=== PATIENT | female | born 1960 | race Caucasian/White ===

== ENCOUNTER 2016-07-18 09:53 | Inpatient (IN) ==
--- NOTE | 2016-07-17 21:06 | Discharge Summary ---
<SmitarudyStephanie gore Deidre - Last Filed: 07/18/16 13:51> - Discharge Diagnosis (1) Arthritis of knee, right Priority: Primary Status: Acute (2) Hyperlipidemia Priority: Secondary Status: Chronic Qualifiers: Hyperlipidemia type: unspecified Qualified Code(s): E78.5 - Hyperlipidemia , unspecified (3) Asthma Status: Chronic Qualifiers: Asthma severity: unspecified severity Asthma complication type: uncomplicated Qualified Code(s): J45.909 - Unspecified asthma, uncomplicated (4) Hypertension Status: Chronic Qualifiers: Hypertension type: unspecified secondary hypertension Qualified Code(s): I15.9 - Secondary hypertension, unspecified; I15 - Secondary hypertension (5) Obstructive sleep apnea Status: Chronic - Discharge Medications Home Medications: Atorvastatin Calcium [Lipitor] 20 mg PO DAILY 07/18/15 [History] Lisinopril [Zestril] 20 mg PO DAILY 07/18/15 [History] Multivitamin [Multi-Day Vitamins] 1 tab PO DAILY 12/22/15 [History] Aspirin Enteric Coated [Aspirin EC] 325 mg PO DAILY #21 tablet.dr 07/17/16 [Rx] OxyCODONE Immed Rel [Roxicodone 5 MG] 5 - 10 mg PO Q6HR PRN #40 tablet 07/17/16 [Rx] Ibuprofen [Motrin] 200 mg PO Q8H PRN 07/18/16 [History] Montelukast [Singulair] 10 mg PO HS 07/18/16 [History] Rizatriptan Benzoate [Maxalt] 10 mg PO DAILY PRN 07/18/16 [History] Allergies/Adverse Reactions: Allergies prednisone Allergy (Verified 07/18/16 11:51) Hives Diclofenac Adverse Reaction (Verified 07/18/16 11:51) Nausea Primary care physician: Dandre Patton DO - Patient Status Disposition: Home, Self-Care Condition: Good - Discharge Instructions Follow Up With: Dandre Patton DO [Primary Care Provider] - - Hospital Course Hospital course: Ms. Martinez is a 55 year old female - Time Spent with Patient Total time spent providing and/or coordinating discharge services: <Lance Dickson - Last Filed: 07/19/16 06:42> Date of Encounter: 07/19/16 Time of Encounter: 06:42 - Discharge Diagnosis (1) Hypertension Priority: Secondary Status: Chronic Qualifiers: Hypertension type: unspecified secondary hypertension Qualified Code(s): I15.9 - Secondary hypertension, unspecified; I15 - Secondary hypertension (2) Hyperlipidemia Status: Chronic Qualifiers: Hyperlipidemia type: unspecified Qualified Code(s): E78.5 - Hyperlipidemia , unspecified (3) Asthma Priority: Secondary Status: Chronic Qualifiers: Asthma severity: unspecified severity Asthma complication type: uncomplicated Qualified Code(s): J45.909 - Unspecified asthma, uncomplicated (4) Obstructive sleep apnea Priority: Secondary Status: Chronic (5) Arthritis of knee, right Priority: Primary Status: Acute (6) Acute blood loss anemia Priority: Primary Status: Acute Primary care physician: Dandre Patton DO - Patient Status Functional capacity at discharge: uses cane/walker Overall status at discharge: patient is progressing back to baseline - Hospital Course Hospital course: Ms. Martinez is a 55 year old female The patient had an uneventful postoperative course. They received antibiotics and physical therapy and were discharged in stable condition. There will follow -up in the office in 2 weeks. Aspirin DVT prophylaxis - Time Spent with Patient Total time spent providing and/or coordinating discharge services:
--- NOTE | 2016-07-18 10:01 | History & Physical Report ---
Date of Encounter: 07/18/16 Time of Encounter: 10:00 24 Hour HP Update - Instructions Instructions: If the History and Physical is less than 30 days old and was completed prior to A.M. admission and or procedure and has NOT been updated on calendar day of procedure please complete this update prior to performing procedure. - Update Patient reports changes in Medical Condition: No Changes in assessment/condition: No Changes in Medication: No Preop tests/diagnostics Reviewed: Yes Surgery Remains Indicated: Yes Consent for Planned Operative Procedure(s) Verified: Yes - Pre-Operative Checklist Preoperative Checklist Indicated: No Prophylactic Antibiotic Ordered: Yes Is VTE Prophylaxis Indicated?: Yes
[2016-07-18] MEDS ORDERED: CeFAZolin Pre 2,000 MG/100 ML 2,000 MG/100 ML BAG IVPB ONE (10:13)
[2016-07-18] MEDS ORDERED: Albuterol 2.5 MG/3 ML NEBULIZER IH ONE (10:13)
[2016-07-18] MEDS: Ringers Solution, Lactated 1,000 ML IVC SCH ×3 (10:36→15:01)
[2016-07-18] MEDS ORDERED: Vancomycin 1,000 MG in D5% in Water 250 ML IVPB ONE (10:37)
--- NOTE | 2016-07-18 10:44 | Anesthesia Evaluation PreOp ---
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 History: Other (lumbar ddd, chronic back/leg pain, lumbar stenosis, deaf complete left/partial right) Other Medical History: Denies Any Significant HX Anesthesia History: No Prior Anesthetic Complications, Past Anesthesia (ankle, hysterect, knee arth, tka, l foot) Alcohol Use: none Drug use: none Medications and Allergies Atorvastatin Calcium [Lipitor] 20 mg PO DAILY 07/18/15 [History] Lisinopril [Zestril] 20 mg PO DAILY 07/18/15 [History] Lovastatin [Altoprev] 40 mg PO DAILY 12/22/15 [History] Multivitamin [Multi-Day Vitamins] 1 tab PO DAILY 12/22/15 [History] Aspirin Enteric Coated [Aspirin EC] 325 mg PO DAILY #21 tablet. 07/17/16 [Rx] OxyCODONE Immed Rel [Roxicodone 5 MG] 5 - 10 mg PO Q6HR PRN #40 tablet 07/17/16 [Rx] Allergies prednisone Allergy (Verified 05/12/16 17:59) Hives - Meds/Allergy Pre-op Review Medications Reviewed: Yes Allergies Reviewed: Yes Beta Blockers on Current Med List: No Anesthesia Results - Labs Laboratory Tests 07/01/16 07/01/16 07/01/16 14:33 14:33 14:33 Hgb 12.4 Hct 37.9 Plt Count 243 PT 10.8 INR 1.0 APTT 31.0 Sodium 140 Potassium 4.2 Creatinine 0.73 - Imaging EKG: report reviewed (sr) Anesthesia Exam O2 Sat Height 1.6 m Height 1.6 m Height 1.6 m Weight 87.543 kg Weight 87.543 kg Weight 87.543 kg O2 Sat by Pulse Oximetry 99 O2 Sat by Pulse Oximetry 99 Vital Signs Temp Pulse Resp BP Pulse Ox 99.1 F 70 18 102/67 99 07/18/16 10:38 07/18/16 10:38 07/18/16 10:38 07/18/16 10:38 07/18/16 10:38 Height: 1.6 Weight: 87 NPO (# of Hours): >8 - HEENT Pupil (Motor): Pupils equal, EOMI Mallampati: I Teeth: Edentulous, Poor dentition Oral Opening: Greater than 3 - WOOD PATTERN[employer] LOC: Oriented [employer]OD [employer]TERN[employer] Motor: Normal RUE, Normal LUE, Normal RLE, Normal LLE, Normal Face [employer] Sensory: Normal: RUE, LUE, RLE, LLE, Face - Cardiac Rhythm: Regular Murmur: None - Pulmonary Breath Sounds: bilateral Clear Respiratory Effort: Symmetrical Anesthesia Assess/Plan ASA Score: 2 Modified Osteen Scale for Level of Consciousness: Cooperative, oriented, and tranquil Anesthetic Plan: General, Regional Monitoring Plan: Standard Monitors Recovery Plan: PACU
[2016-07-18] MEDS ORDERED: *HR* Magnesium Sulfate 2 GM/50 ML PIGGYBACK IVPB ONE (10:51)
[2016-07-18] MEDS ORDERED: CloNIDine Patch 0.1 MG PATCH (WEEKLY) TD SCH (11:00)
[2016-07-18] MEDS ORDERED: Magnesium Sulfate 2 GM/100 ML PIGGYBACK IVPB SCH (11:15)
[2016-07-18] MEDS ORDERED: *HR* Labetalol 100 MG/20 ML MDV IVP PRN (11:33)
[2016-07-18] MEDS ORDERED: Ondansetron 4 MG/2 ML VIAL IVP ONE (11:33)
[2016-07-18] MEDS ORDERED: *HR* HYDROmorphone (PF) 1 MG/ML SYRINGE IVP PRN (11:33)
[2016-07-18] MEDS ORDERED: *HR* FentaNYL (PF) 100 MCG/2 ML VIAL ONE ×3 (11:37→13:02)
[2016-07-18] MEDS ORDERED: *HR* Propofol 200 MG/20 ML VIAL IVP ONE (11:37)
[2016-07-18] MEDS ORDERED: *HR* Midazolam HCl 2 MG/2 ML VIAL ONE (11:37)
[2016-07-18] MEDS ORDERED: Lidocaine -MPF 2% 2 ML VIAL ONE (11:38)
[2016-07-18] MEDS ORDERED: Tetracaine/PF 20 MG/2 ML AMPUL SPINA ONE (12:14)
--- NOTE | 2016-07-18 12:35 | Anesthesia Procedures ---
Date of Encounter: 07/18/16 Time of Encounter: 12: Procedures: Anesthesia - Nerve Block Procedure Date: 07/18/16 Time: 12: Surgical Procedure: right total knee Checklist: Correct Patient Identifier, Correct procedure, History checked Correct side: Right Monitor Applied: EKG Sedation: Versed (mg): 2 Sedation: Fentanyl (mcg): 100 Indication: Post Op Analgesia Block Type: Femoral Catheter placed: No Sterile Technique: Yes Ultrasound used: Yes Anatomy identified: Yes Visual spread of Local: Yes Blood on Needle Aspiration: No Smooth Injection of Local: Yes Pain with Injection of Local: No Prep: Chlorhexadine Needle: 22 x 50 mm Stimuplex Local: Other (40ml .5% bup, 2ml tetracaine, 4ml 2% lido ) Volume (cc): 50 Number of Attempts: 1 Complications: None/effective block Vitals: vss, block per request of sue
--- NOTE | 2016-07-18 13:23 | Orthopedic Operative Note ---
Date of procedure: 07/18/16 Pre-op diagnosis: Right knee arthritis Post-op diagnosis: same Procedure: Procedure: Right Total knee replacement Estimated blood loss: 200 cc Hardware: Arthrex Femur: 4 Tibia: 3 PS insert: 14 Patella: 34 Exam Under anesthesia: Full extension full flexion and instability Procedural Notes: Patient noted to have grade 4 arthritic changes medial compartment grade 3 arthritic changes patellofemoral joint. Operative procedure: The patient was brought to the operating room and placed on the operating room table. After general anesthesia was administered the operative knee was examined. Findings were noted in the exam under anesthesia. The operative extremity was prepped and draped in sterile surgical fashion. The patient received IV antibiotics prior to skin incision. A standard midline incision was made centered over the patella. The incision was made through the skin and subcutaneous tissue. A medial parapatellar tendon approach was performed. Care was taken to preserve tissue along the medial aspect of the patella. And to protect the patella tendon. The deep MCL was released off the medial tibia. The infra patella fat pad was excised. Knee was brought into flexion. Patient noted to have grade 4 arthritic changes medial compartment grade 3 arthritic changes patellofemoral joint. The entry hole was made for the intramedullary femoral guide. The guide was seated in 6 degrees of valgus. Anterior cut was made followed by the distal cut. The ACL the PCL the medial and the lateral menisci were excised. The tibia was subluxed forward. The entry hole was made for the intramedullary tibial guide. Guide was seated to resect 2 mm off the more abnormal side. The knee was brought into flexion the distal femur was sized to a 4. The femoral guide was seated, the anterior cut was made followed by the posterior condylar cut, followed by the chamfer cuts. The finishing guide was seated the box cut was made and the lug holes were drilled. The tibia was sized to a 3, the tibial tray was seated and prepared with the large drill followed by the fin cutter. Trial reduction revealed full extension no varus valgus instability with the appropriate the 14 PS Pia. The patella was everted and cut was made at the level of the insertion of the quadriceps and patella tendon. The patella was sized to a 34 the guide was seated and the lug holes are drilled. Trial reduction revealed excellent patella tracking. All trial components were removed all bony surfaces were irrigated. The tibia was cemented first followed by the femur. The 14 PS Pia was seated and the knee was brought into full extension. The patella was cemented and held in place with the patellar holding clamp. After the cement had hardened, the knee sat for 2 minutes with a Betadine saline solution. The knee was then irrigated out with 2 L of pulse irrigation. The extensor mechanism was closed with #2 FiberWire suture and #2 PDS suture. The subcutaneous tissue was then irrigated and closed deep with #1 PDS suture superficially with 0 PDS suture and skin was closed with skin chikis and Dermabond. The patient was then placed in a sterile dressing and a postoperative brace extubated and transferred to recovery room in stable condition. Anesthesia: KANDIS Surgeon: Lance Dickson Condition: stable Disposition: PACU
[2016-07-18] MEDS ORDERED: *HR* Morphine 10 MG/ML VIAL ONE (13:40)
[2016-07-18] MEDS ORDERED: *HR* Meperidine 25 MG/ML SYRINGE ONE ×2 (13:46→14:49)
[2016-07-18] MEDS ORDERED: *HR* HYDROmorphone (PF) 1 MG/ML SYRINGE ONE ×3 (13:51→14:50)
[2016-07-18 14:05] LABS: Hematocrit 31.8 % (35.3-44.9); Hemoglobin 10.4 g/dL (11.5-15.4)
[2016-07-18] MEDS: *HR* HYDROmorphone (PF) 1 MG/ML SYRINGE IVP PRN ×6 (14:25→20:57)
[2016-07-18] MEDS ORDERED: Acetaminophen IV 1,000 MG/100 ML INFUS..BTL ONE (14:25)
--- NOTE | 2016-07-18 15:11 | Anesthesia Evaluation Post Op ---
Date of Encounter: 07/18/16 Time of Encounter: 15:10 - Vital Signs Vital Signs: Vital Signs/O2 Sat/Glucose, Most Current Temp Pulse Resp BP Pulse Ox 07/18/16 15:05 97.1 F L 79 16 112/69 97 07/18/16 14:55 74 16 122/77 98 07/18/16 14:45 97.1 F L 75 14 129/79 100 07/18/16 14:35 70 16 130/89 99 07/18/16 14:25 80 14 146/83 98 07/18/16 14:15 97.6 F 80 16 146/95 97 07/18/16 14:05 83 16 140/77 100 07/18/16 13:55 88 16 138/84 92 L 07/18/16 13:45 97.0 F L 90 14 142/89 96 07/18/16 12:25 75 119/71 97 07/18/16 12:13 76 119/71 95 - Lungs Lungs: Clear Ascult./Percussion - Airway Airway: Non-obstructed - Cardiovascular Regular Rate - Mental Status Mental Status: Alert & Oriented, Answers Appropriately - Pain Pain Scale: 2 - Nausea Vomiting Nausea Vomiting: Not Present - Hydration Hydration: Tolerates oral liquids - Discharge PostOp Status: Transfer Patient to floor
[2016-07-18] MEDS ORDERED: Ondansetron 4 MG/2 ML VIAL IVP PRN (15:22)
[2016-07-18] MEDS ORDERED: (Rizatriptan Benzoate [Maxalt] 10 MG) PO PRN (15:22)
[2016-07-18] MEDS ORDERED: *HR* OxyCODONE Immed Rel 5 MG TABLET PO PRN (15:22)
[2016-07-18] MEDS ORDERED: Sennosides 8.6 MG TABLET PO PRN (15:22)
[2016-07-18] MEDS ORDERED: MOM Conc 10 ML UD.LIQ PO PRN (15:22)
[2016-07-18] MEDS ORDERED: Temazepam 15 MG CAPSULE PO PRN (15:22)
[2016-07-18] MEDS ORDERED: Naloxone 0.4 MG/ML INJ IVP PRN (15:22)
[2016-07-18] MEDS ORDERED: Ringers Solution, Lactated 1,000 ML IVC SCH (15:22)
[2016-07-18] MEDS: ceFAZolin 2,000 MG in D5% in Water 100 ML IVPB SCH ×2 (16:42→23:57)
[2016-07-18] MEDS: *HR* Enoxaparin 30 MG/0.3 ML SYRINGE SQ SCH (17:39)
[2016-07-18] MEDS: *HR* OxyCODONE Immed Rel 5 MG TABLET PO PRN ×2 (17:40→23:56)
[2016-07-18] MEDS ORDERED: *HR* Enoxaparin 30 MG/0.3 ML SYRINGE SQ SCH (18:00)
[2016-07-19] MEDS: *HR* HYDROmorphone (PF) 1 MG/ML SYRINGE IVP PRN ×4 (01:15→19:13)
[2016-07-19] MEDS: Ibuprofen 200 MG TABLET PO PRN ×3 (02:30→23:40)
[2016-07-19] MEDS: *HR* OxyCODONE Immed Rel 5 MG TABLET PO PRN ×4 (03:45→21:36)
[2016-07-19] MEDS: *HR* Enoxaparin 30 MG/0.3 ML SYRINGE SQ SCH ×2 (04:59→16:48)
[2016-07-19 06:11] LABS: Hematocrit 28.4 % (35.3-44.9); Hemoglobin 9.3 g/dL (11.5-15.4)
[2016-07-19 06:25] LABS: BUN/Creatinine Ratio 17 (6-26); Blood Urea Nitrogen 12 mg/dL (7-20); Calcium 8.8 mg/dL (8.6-10.8); Carbon Dioxide 26 mEq/L (19-29); Chloride 102 mEq/L (98-109); Glucose 122 mg/dL (70-99); Osmolality,Calculated 285 (280-300); Potassium 3.9 mEq/L (3.5-4.5); Sodium 137 mEq/L (136-145); eGFR For African Americans > 60 (> 60); eGFR For Non-African Americans > 60 (> 60)
--- NOTE | 2016-07-19 06:43 | Orthopedics Progress Note ---
Date of Encounter: 07/19/16 Time of Encounter: 06:43 - Assessment and Plan (1) Hypertension Current Visit: Yes Status: Chronic Qualifiers: Hypertension type: unspecified secondary hypertension Qualified Code(s): I15.9 - Secondary hypertension, unspecified; I15 - Secondary hypertension (2) Hyperlipidemia Current Visit: Yes Status: Chronic Qualifiers: Hyperlipidemia type: unspecified Qualified Code(s): E78.5 - Hyperlipidemia , unspecified (3) Asthma Current Visit: Yes Status: Chronic Qualifiers: Asthma severity: unspecified severity Asthma complication type: uncomplicated Qualified Code(s): J45.909 - Unspecified asthma, uncomplicated (4) Obstructive sleep apnea Current Visit: Yes Status: Chronic (5) Arthritis of knee, right Current Visit: Yes Status: Acute (6) Acute blood loss anemia Current Visit: Yes Status: Acute Subjective Interval history: Patient was seen this morning doing well without complaints. Afebrile vital signs stable. Operative extremity: Neurovascularly intact Dressing clean dry and intact Calves nontender Assessment and plan: Continue with postoperative care Hemoglobin 9.3 discharged today Objective Vital signs: Vital Signs Temp Pulse Resp BP Pulse Ox 07/19/16 06:38 98.6 F 91 16 117/72 94 L 07/19/16 04:08 100.9 F H 104 19 146/79 97 07/19/16 00:58 98.8 F 92 21 133/79 98 07/18/16 23:00 98.8 F 92 21 133/79 98 07/18/16 20:00 100 07/18/16 19:11 97.6 F 87 19 132/73 100 07/18/16 18:34 97.7 F 84 16 131/90 100 07/18/16 17:34 98.9 F 90 16 120/75 99 07/18/16 16:30 98.8 F 87 16 117/77 98 07/18/16 15:56 98.7 F 80 16 119/75 100 07/18/16 15:32 98.0 F 80 16 129/82 100 07/18/16 15:15 97.1 F L 82 14 112/55 94 L 07/18/16 15:05 97.1 F L 79 16 112/69 97 07/18/16 14:55 74 16 122/77 98 07/18/16 14:45 97.1 F L 75 14 129/79 100 07/18/16 14:35 70 16 130/89 99 07/18/16 14:25 80 14 146/83 98 07/18/16 14:15 97.6 F 80 16 146/95 97 07/18/16 14:05 83 16 140/77 100 07/18/16 13:55 88 16 138/84 92 L 07/18/16 13:45 97.0 F L 90 14 142/89 96 07/18/16 12:25 75 119/71 97 07/18/16 12:13 76 119/71 95 07/18/16 10:41 18 102/67 99 07/18/16 10:38 99.1 F 70 18 102/67 99 Intake and Output 07/18/16 07/18/16 07/19/16 15:59 23:59 07:59 Intake Total 2250 / 2250 100 / 100 Output Total 200 / 200 400 / 400 Balance 2050 / 2050 100 / 100 -400 / -400 Intake: IV Fluids 2250 / 2250 100 / 100 Lactated Ringers 1,000 ML 2000 / 2000 @ 75 mls/hr IVC .[id number] [facility] Rx#:[id number] Ancef 2,000 MG In 100 / 100 Dextrose 5% 100 ML @ 200 mls/hr IVPB Q8HR [facility] Rx#: [id number] Vancocin 1,000 MG In 250 / 250 Dextrose 5% 250 ML @ 167 mls/hr IVPB ONCE ONE Rx#: [id number] Output: Urine 400 / 400 Estimated Blood Loss 200 / 200 Other: Meal Dinner Percent of Meal Consumed 100% Weight 87.543 kg - Labs CBC & BMP: 07/19/16 05:22 07/19/16 05:22 Labs: Abnormal lab results Hgb 9.3 g/dL (11.5-15.4) L 07/19/16 05:22 Hct 28.4 % (35.3-44.9) L 07/19/16 05:22 Glucose 122 mg/dL (70-99) H 07/19/16 05:22 - VTE Documentation of Mechanical Device: Venous foot pump, device Consult Discharge Plan - Plan Referrals: Dandre Patton DO [Primary Care Provider] -
[2016-07-19] MEDS: Acetaminophen 325 MG TABLET PO PRN ×2 (06:50→21:36)
[2016-07-19] MEDS: Multivit/Ca/Min/Fe/FA 1 TAB TABLET PO SCH (08:15)
[2016-07-19] MEDS: Lisinopril 20 MG TABLET PO SCH (08:16)
[2016-07-20] MEDS: *HR* Enoxaparin 30 MG/0.3 ML SYRINGE SQ SCH ×2 (04:25→16:55)
[2016-07-20] MEDS: *HR* OxyCODONE Immed Rel 5 MG TABLET PO PRN ×4 (04:25→18:36)
[2016-07-20] MEDS: *HR* HYDROmorphone (PF) 1 MG/ML SYRINGE IVP PRN ×3 (05:30→14:55)
[2016-07-20 06:59] LABS: Hematocrit 24.5 % (35.3-44.9)
[2016-07-20 07:22] LABS: BUN/Creatinine Ratio 26 (6-26); Blood Urea Nitrogen 18 mg/dL (7-20); Calcium 8.8 mg/dL (8.6-10.8); Carbon Dioxide 22 mEq/L (19-29); Chloride 107 mEq/L (98-109); Glucose 113 mg/dL (70-99); Osmolality,Calculated 287 (280-300); Potassium 4.1 mEq/L (3.5-4.5); Sodium 137 mEq/L (136-145); eGFR For African Americans > 60 (> 60); eGFR For Non-African Americans > 60 (> 60)
[2016-07-20] MEDS: Multivit/Ca/Min/Fe/FA 1 TAB TABLET PO SCH (08:37)
[2016-07-20] MEDS: Lisinopril 20 MG TABLET PO SCH (08:37)
--- NOTE | 2016-07-20 09:11 | Orthopedics Progress Note ---
Date of Encounter: 07/20/16 Time of Encounter: 06:00 - Assessment and Plan (1) Hypertension Current Visit: Yes Status: Chronic Qualifiers: Hypertension type: unspecified secondary hypertension Qualified Code(s): I15.9 - Secondary hypertension, unspecified; I15 - Secondary hypertension (2) Hyperlipidemia Current Visit: Yes Status: Chronic Qualifiers: Hyperlipidemia type: unspecified Qualified Code(s): E78.5 - Hyperlipidemia , unspecified (3) Asthma Current Visit: Yes Status: Chronic Qualifiers: Asthma severity: unspecified severity Asthma complication type: uncomplicated Qualified Code(s): J45.909 - Unspecified asthma, uncomplicated (4) Obstructive sleep apnea Current Visit: Yes Status: Chronic (5) Arthritis of knee, right Current Visit: Yes Status: Acute (6) Acute blood loss anemia Current Visit: Yes Status: Acute Subjective Interval history: Patient was seen this morning doing well without complaints. Afebrile vital signs stable. Operative extremity: Neurovascularly intact Dressing clean dry and intact Calves nontender Assessment and plan: Continue with postoperative care Hematocrit 24 transfuse 2 units discharged today Objective Vital signs: Vital Signs Temp Pulse Resp BP Pulse Ox 07/20/16 07:29 98.6 F 80 16 94/57 99 07/20/16 04:00 98.4 F 97 17 109/50 98 07/20/16 00:00 98.8 F 100 18 94/64 100 07/19/16 20:00 98.3 F 101 18 109/69 100 07/19/16 16:07 98.1 F 77 16 118/76 100 07/19/16 11:18 98.2 F 92 16 102/66 99 Intake and Output 07/19/16 07/20/16 07/20/16 23:59 07:59 15:59 Intake Total 300 / 300 350 / 350 Output Total 275 / 275 275 / 275 Balance 25 / 25 75 / 75 Intake: Oral 300 / 300 350 / 350 Output: Urine 275 / 275 275 / 275 - Labs CBC & BMP: 07/20/16 05:50 07/20/16 05:50 Labs: Abnormal lab results Hgb 8.0 g/dL (11.5-15.4) L 07/20/16 05:50 Hct 24.5 % (35.3-44.9) L 07/20/16 05:50 Glucose 113 mg/dL (70-99) H 07/20/16 05:50 - VTE Documentation of Mechanical Device: Venous foot pump, device Consult Discharge Plan - Plan Additional Instructions: Discharge Instructions: Total Knee Replacement Please call [facility] ([phone]), your Primary Care Physician, or report to the Emergency Room if you have any of the following symptoms: Nausea, vomiting, fever greater that 101.5, swelling, chest pain, shortness of breath, increased pain/redness/drainage/odor for your incision site, numbness/ tingling, or any other concerning symptoms. ACTIVITY:Weight-bearing as tolerated. You may progress off support (cruthches or walker) as tolerated. MEDICATIONS: Upon discharge resume your home medications. Take all the medications as prescribed. Take a stool softener if taking narcotic pain medications. Stool softeners are only effective if you drink enough fluids. Drink 6-8 glass of water or fluids a day, unless this is not allowed for another health problem. Despite using stool softeners, if you haven't had a bowel movement in 3 days, please switch to a gentle laxative. Gentle laxatives are sold over the counter. You should have a bowel movement within 24 hours, if not call the office. You will be discharged from the hospital with a prescription for pain medication. You are encouraged to decrease the use of narcotic pain medication as tolerated. Should you require a refill, please call the office. [facility] prescribes narcotic pain medication for only 4-6 weeks after surgery. If you require pain medication beyond this time periord, you may be referred to your Primary Care Physician or to the Pain Clinic for further evaluation. Plan ahead for refills on pain medication as many narcotics either need to be picked up at the office or mailed. It is best to call 48-72 hours in advance of needing a prescription refill so you don't run out of medication. To help control the post-operative pain, you may take NSAIDs (Aleve,Advil, Motrin, ibuprofen, naprosyn) or Tylenol as prescribed on the bottle in addition to the pain medication. ANTICOAGULATION (blood thinners): Continue your Aspirin, Lovenox or Coumadin as prescribed to help prevent a blood clot in the leg or in the lungs. As long as your incision remains dry and you tolerate the NSAIDs (Aleve, Advil, Motrin, ibuprofen, naprosyn), it is OK to use the NSAIDS while you are taking your anticoagulation medication. Should your incision start to drain, stop the NSAID and contact our office. Common symptoms of blood clot in the legs include: localized pain, swelling, calf tenderness, redness or discoloration of the skin. Blood clot in the lung symptoms include: shortness of breath, rapid pulse, sweating, and chest pain that worsens with deep breathing, coughing up blood, lightheadedness, feelings of anxiety. If you experience any of these symptoms notify your physician immediately, go to the emergency room, or if having trouble breathing, call 911. WOUND CARE: Leave the dressing on for 7 days. You may change the dressing if it becomes saturated greater than 50%. You can shower but not a tub bath or submerge your incision in water. Wash your hands with antibacterial soap, rinse and dry prior to any wound care. If you have chikis the visiting nurse or rehab facility can remove the stapes 10-14 days after surgery and place steri- strips across the wound. Leave the steri-strips in place until they fall off on their won. You may let water from the shower run on top of the steri-stirips. If you do not have a visiting nurse or rehab facility, you will need to return to the office at 10-14 days for the chikis to be removed. FOLLOW-UP: Please follow up with your surgeon in the orthopedic clinic in 4 weeks from the day of surgery. If you have chikis that need to be removed, you will need to come back to the office in 10-14 days from the day of surgery. Referrals: Lance Dickson MD [Partnered Physician] - 08/16/16 8:35 am Stephanie Craig PAC [Physician [employer]] - 07/28/16 8:15 am Maame Champion DO [Resident] - 07/25/16 1:00 pm Dandre Patton DO [Primary Care Provider] - Alistair Burr DO [Partnered Physician] - 11/22/16 9:00 am
[2016-07-20] MEDS ORDERED: Furosemide 20 MG/2 ML VIAL IVP ONE ×3 (09:26→20:22)
[2016-07-20] MEDS ORDERED: 0.9 % Sodium Chloride 250 ML ONE ×2 (12:34→16:58)
[2016-07-20] MEDS: Acetaminophen 325 MG TABLET PO PRN (13:55)
[2016-07-20 18:39] VITALS: BP 143/73
== END 2016-07-20 20:50 | disposition home or self-care (01) | DRG 470 ==
LOC: SAMDAY 09:53 → 3NENU 15:25
PROVIDERS: ADMIT Orthopaedic Surgery; ATTEND Orthopaedic Surgery